=== PATIENT | female | born 1990 | race Hispanic/Latino ===

== ENCOUNTER 2017-05-05 16:01 | Emergency (ER) | payer OTHER ==
[~2017-05-05] VITALS: Ht 162.6 cm; Wt 81.3 kg
[2017-05-05 16:29] LABS: HEMATOCRIT 40.3 % (36.0-46.0); MCH 29.8 PG (29.0-34.0); MCHC 33.7 G/DL (30.0-36.0); MCV 88.4 FL (83-99); MEAN PLAT.VOLUME 12.5 uM^3 (9.5-12.4); PLATELET COUNT 181 K/uL (156-360); RBC DIS.WIDTH-CV 12.9 % (11.8-14.6); RBC DIS.WIDTH-SD 41.6 % (39-53); RED BLOOD COUNT 4.56 M/uL (3.80-5.20); WHITE BLOOD COUNT 13.5 K/uL (4.1-10.2)
[2017-05-05 16:38] LABS: CHLORIDE 106 mEq/L (99-109); POTASSIUM 3.9 mEq/L (3.7-5.4); SODIUM 140 mEq/L (136-147)
[2017-05-05 16:39] LABS: GLUCOSE 77 mg/dL (70-99)
[2017-05-05 16:41] LABS: ANION GAP 7 MEQ/L (2-14)
[2017-05-05 16:44] LABS: UREA NITROGEN (BUN) 9 mg/dL (9-23)
[2017-05-05 16:45] LABS: GFR ESTIMATE (CALCULATED) > 59 mL/min/
[2017-05-05] MEDS ORDERED: ZITHROMAX250 MG PO (18:42)
[2017-05-05] MEDS ORDERED: VENTOLIN HFA18 GM IH (18:44)
[2017-05-05 20:11] VITALS: BP 132/89
== END 2017-05-05 20:12 | disposition home or self-care (01) ==
LOC: EME 16:01
DX: J18.9 Pneumonia, unspecified organism (principal); J45.909 Unspecified asthma, uncomplicated; Z88.0 Allergy status to penicillin; Z88.6 Allergy status to analgesic agent
CPT/HCPCS: 71020; 80048; 85027; 94640; 99281; 99284